=== PATIENT | male | born 1985 | race Caucasian/White ===

== ENCOUNTER 2021-06-01 09:37 | Emergency (ER) | payer OTHER, SELFPAY ==
[2021-06-01] VITALS (44 sets, daily range): BP systolic 132–183; BP diastolic 67–136; PULSE 70–89; RESP 9–33; TEMP 36.7–37; O2SAT 99–100
--- NOTE | ~2021-06-01 | XR_ITS ---
EXAMINATION: XR chest 2V DATE: 06/01/2021 10:13 INDICATION: Chest pain and shortness of breath. TECHNIQUE: Frontal and lateral views of the chest were obtained. COMPARISON: Chest 2 views 03/24/2013 FINDINGS: The chest demonstrates clear lungs without pneumonia, pleural effusion, or pneumothorax. Th e heart size is normal. IMPRESSION: 1. No acute cardiopulmonary disease. Reviewed, dictated and finalized at location A.
--- NOTE | ~2021-06-01 | CT_ITS ---
EXAMINATION: CTA chest DATE: 06/01/2021 14:24 INDICATION: Chest pain. Shortness of breath. TECHNIQUE: Computed tomographic angiography (CTA) of the chest was performed with 100 mL Omnipaque-35 0 intravenous contrast. Automated exposure control and iterative reconstruction technique were employ ed. The dose-length product was 1308.09 mGy-cm. Maximum intensity projection 3D-reconstructions of th e aorta and other arteries were constructed by the technologist on a separate workstation. COMPARISON: None. FINDINGS: Calcified right lung nodules and calcified right hilar and mediastinal lymph nodes are cons istent with old granulomatous disease. No pleural effusion. The heart size is normal. No pericardial effusion. Thoracic aorta is normal in caliber. There is diffuse hepatic steatosis. There is mild thor acic spondylosis. Thoracic levoscoliosis is noted. IMPRESSION: 1. No etiology for the patient's symptoms. Reviewed, dictated and finalized at location A.
--- NOTE | 2021-06-01 09:44 | ECG_ITS ---
Measurements Intervals [place] Rate: 75 P: 35 CA: 176 QRS: -9 QRSD: 100 T: 17 QT: 367 QTc: 411 Interpretive Statements SINUS RHYTHM DELAYED PRECORDIAL R/S TRANSITION VOLTAGE CRITERIA FOR LVH BASELINE ARTIFACT- I, III, AVL BORDERLINE ECG Electronically Signed On 06-01-2021 10:16:11 CDT by Walter Carlos D.O.
[2021-06-01 10:15] LABS: Basophils Absolute Auto 0.1 K/mm3 (0.0-0.1); Basophils Percent Auto 0.8 % (0.2-1.2); Eosinophils Absolute Auto 0.2 K/mm3 (0-0.3); Eosinophils Percent Auto 3.3 % (0-4.4); Hematocrit 43.2 % (42.0-52.0); Hemoglobin 14.5 g/dL (14.0-18.0); Immature Granulocyte Absolute 0.02 K/mm3 (0.00-0.031); Immature Granulocyte Percent A 0.3 % (0-0.5); Lymphocytes Percent Auto 37.4 % (18.3-44.2); Mean Corpuscular HGB Conc 33.6 g/dl (32-36); Mean Corpuscular Hemoglobin 27.5 pg (26-34); Mean Platelet Volume 9.4 fl (7.4-10.4); Monocytes Absolute Auto 0.5 K/mm3 (0.1-0.6); Monocytes Percent Auto 7.6 % (2.6-8.5); Neutrophils Absolute Auto 3.1 K/mm3 (1.3-6.7); Neutrophils Percent Auto 50.6 % (45.5-73.1); Platelet Count Result 299 k/mm3 (150-375); Red Blood Count 5.27 M/mm3 (4.6-6.20); Red Cell Distribution Width 13.2 % (11.5-14.5); White Blood Count 6.2 K/mm3 (4.5-10.0)
[2021-06-01 10:28] LABS: Anion Gap 13 mmol/L (8-16); Blood Urea Nitrogen 15 mg/dL (9-20); Calcium 8.8 mg/dL (8.4-10.2); Carbon Dioxide 24 mmol/L (22-30); Chloride 105 mmol/L (98-107); Estimated CRCL calculation 141 ml/min; Estimated Glomerular Filt Rate > 60; Glucose 110 mg/dL (65-110); Potassium 3.9 mmol/L (3.4-5.0); Sodium 142 mmol/L (137-145)
[2021-06-01 10:30] LABS: INR 0.9
[2021-06-01 10:31] LABS: Partial Thromboplastin Time 27.3 SECONDS (22.3-36.8)
[2021-06-01 10:39] LABS: Troponin I < 0.012 ng/mL (0.000-0.034)
--- NOTE | 2021-06-01 11:39 | ED.GENADULT ---
HPI - General Adult General Chief complaint: Chest Pain Stated complaint: CP, SOB, ONSET THIS AM Time Seen by Provider: 06/01/21 11:02 Source: patient History of Present Illness HPI narrative: Patient is a 36 y/o male complaining of chest pain since when he woke up around 7:45 AM. He describes his pain as sharp and it's mostly on left side with radiation to left shoulder and back. He rates his pain as 7/10. He also has some SOB. He has no fever or cough. Related Data Allergies Allergy/AdvReac Type Severity Reaction Status Date / Time No Known Allergies Allergy Unverified 06/01/21 11:20 Review of Systems Constitutional: Constitutional: Denies chills, Denies fever(s), Denies headache(s) and Denies weakness Eyes: Eyes: Denies blurry vision ENT: Denies headache(s) and Denies neck pain Cardiovascular: Cardiovascular: Reports chest pain and Reports dyspnea Respiratory: Respiratory: Denies cough and Reports dyspnea Gastrointestinal: Gastrointestinal: Denies abdominal pain, Denies diarrhea, Denies nausea and Denies vomiting Genitourinary: Genitourinary: Denies hematuria and Denies dysuria Musculoskeletal: Musculoskeletal: Denies back pain and Denies neck pain Neurologic: Denies headache(s) and Denies weakness Exam Const: General: no acute distress and well developed Orientation/consciousness: oriented to person, oriented to place, oriented to time and patient oriented x3 HENMT: Head: normocephalic Ears: external ears normal General nose exam: Normal external nose present Eyes: General: appearance normal, both eyes and all related structures Conjunctivae: conjunctivae normal Neck: Neck: normal visual inspection and full ROM Chest: Chest palpation & inspection: normal inspection of the chest and no tenderness Resp: Effort & Inspection: normal respiratory effort Auscultation: clear to auscultation bilaterally Cardio: Rate: regular rate Rhythm: regular rhythm GI: GI Palp: No abdominal tenderness and Yes Soft to palpation Skin: General skin exam: normal color and turgor normal Neuro: General: oriented to person, oriented to place, oriented to time and patient oriented x3 Cognition (Neuro): normal cognition Extrem: General: normal to inspection, full ROM and no pedal edema Psych: Appearance: grossly normal Mental Status: mental status grossly normal Affect: normal affect Course Vital Signs Vital signs: Vital Signs Temperature 37.0 C 06/01/21 09:46 Pulse Rate 77 06/01/21 09:46 Respiratory Rate 18 06/01/21 09:46 Blood Pressure 170/136 H 06/01/21 09:46 Pulse Oximetry 99 06/01/21 09:46 Temperature 36.7 C 06/01/21 11:11 Pulse Rate 78 06/01/21 16:21 Respiratory Rate 18 06/01/21 16:21 Blood Pressure 142/78 H 06/01/21 16:21 Pulse Oximetry 99 06/01/21 16:21 Medical Decision Making Vital Signs Vital Signs: Vital Signs Temperature 37.0 C 06/01/21 09:46 Pulse Rate 77 06/01/21 09:46 Respiratory Rate 18 06/01/21 09:46 Blood Pressure 170/136 H 06/01/21 09:46 Pulse Oximetry 99 06/01/21 09:46 Temperature 36.7 C 06/01/21 11:11 Pulse Rate 78 06/01/21 16:21 Respiratory Rate 18 06/01/21 16:21 Blood Pressure 142/78 H 06/01/21 16:21 Pulse Oximetry 99 06/01/21 16:21 Lab Data Result diagrams: 06/01/21 10:04 06/01/21 10:04 Labs: Lab Results 06/01/21 06/01/21 06/01/21 Range/Units 10:04 10:04 10:04 WBC 6.2 (4.5-10.0) K/mm3 RBC 5.27 (4.6-6.20) M/mm3 Hgb 14.5 (14.0-18.0) g/dL Hct 43.2 (42.0-52.0) % MCV 82.0 (80-100) fl MCH 27.5 (26-34) pg MCHC 33.6 (32-36) g/dl RDW 13.2 (11.5-14.5) % Plt Count 299 (150-375) k/mm3 MPV 9.4 (7.4-10.4) fl Immature Gran % (Auto) 0.3 (0-0.5) % Neut % (Auto) 50.6 (45.5-73.1) % Lymph % (Auto) 37.4 (18.3-44.2) % [place] % (Auto) 7.6 (2.6-8.5) % Eos % (Auto) 3.3 (0-4.4) % Baso % (Auto) 0.8 (0.2-1.2) % Lym
[2021-06-01 11:48] LABS: D Dimer 0.27 ug/mL (<0.48)
[2021-06-01 13:19] LABS: Troponin I < 0.012 ng/mL (0.000-0.034)
[2021-06-01] MEDS: LABETALOL HCL INJ 100 MG/20 ML VIAL 20 MG IV PUSH (15:26)
[2021-06-01 15:57] LABS: Troponin I < 0.012 ng/mL (0.000-0.034)
== END 2021-06-01 16:23 | disposition home or self-care (01) ==
PROVIDERS: Emergency Medicine; Emergency Provider Emergency Medicine
DX: R07.9 Chest pain, unspecified (principal); I10 Essential (primary) hypertension
CPT/HCPCS: 36415; 71046; 71275; 80048; 84484; 85025; 85380; 85610; 85730; 93005; 96374; 99284; Q9967

== ENCOUNTER → 2023-03-02 10:49 | Outpatient (CLI) | payer OTHER, SELFPAY ==
--- NOTE | ~2023-03-02 | MR_ITS ---
EXAMINATION: MR elbow LT wo con DATE: 03/02/2023 11:41 INDICATION: Closed nondisplaced fracture of the radial head TECHNIQUE: Magnetic resonance imaging (MRI) of the left elbow was performed without intravenous contr ast. Sequences included coronal, axial, and sagittal PD-weighted FS FSE and coronal, axial, and sagit danny PD-weighted FSE. COMPARISON: None FINDINGS: Osseous/other: Nondisplaced intra-articular fracture of the left radial head with no significant fracture gap or inc ongruity at the articular surface. The fracture line extends across the diameter of the radial head w ith a nondisplaced fragment comprising one half of the articular surface area. Secondary edema about the head and neck the proximal radius. Marrow signal is otherwise normal. No other fractures identifi ed. Alignment remains essentially anatomic. It is unclear whether the fracture extends across the ove rlying articular cartilage. Articular cartilage is otherwise unremarkable. There is mild edema in the soft tissues immediately surrounding the fracture. Tendons: Triceps, biceps brachii and brachialis tendons are normal. Common flexor tendon wad is normal. The c ommon extensor tendon wad is normal. Ligaments: The medial and lateral collateral ligament complexes are normal. Cubital tunnel: Cubital tunnel is unremarkable with normal signal and caliber of the ulnar nerve. Fluid: Left elbow joint effusion. IMPRESSION: 1. Nondisplaced intra-articular fracture of the left radial head. Reviewed, dictated and finalized at location A.
== END ==
DX: S52.125A Nondisplaced fracture of head of left radius, initial encounter for closed fracture (principal); X58.XXXA Exposure to other specified factors, initial encounter
CPT/HCPCS: 73221